=== PATIENT | male | born 1970 | race Caucasian/White ===

== ENCOUNTER → 2020-07-23 14:07 | Outpatient (BNVA) | payer OTHER, SELFPAY | PROVIDERS: PCP Pediatrics; Referring Provider Pediatrics; Visit Provider Physician Assistant | DX: M75.80 Other shoulder lesions, unspecified shoulder (principal); Z88.0 Allergy status to penicillin | CPT/HCPCS: 99213 ==

== ENCOUNTER 2021-01-22 08:19 | Outpatient (REF) | payer OTHER, SELFPAY ==
[2021-01-22 08:54] LABS: COVID-19 Test Negative (Negative); IDNOW Serial# 55D5AD1C
== END 2021-01-22 08:20 | disposition home or self-care (01) ==
LOC: HO.LAB 08:19
PROVIDERS: Visit Provider Internal Medicine
DX: Z20.822 Contact with and (suspected) exposure to COVID-19 (principal)
CPT/HCPCS: 36415; 87635; C9803